=== PATIENT | female | born 1945 | race Caucasian/White ===

== ENCOUNTER → 2016-11-19 | Outpatient (CLI) | payer MEDICARE | END | disposition home or self-care (01) | LOC: RAD.S 09:30 | DX: M54.6 Pain in thoracic spine (principal); R94.8 Abnormal results of function studies of other organs and systems ==

== ENCOUNTER → 2016-11-26 | Outpatient (CLI) | payer MEDICARE | END | disposition home or self-care (01) | LOC: RAD.S 08:25 | DX: R94.8 Abnormal results of function studies of other organs and systems (principal); M47.894 Other spondylosis, thoracic region; M51.34 Other intervertebral disc degeneration, thoracic region; M89.9 Disorder of bone, unspecified ==